=== PATIENT | male | born 1975 | race Caucasian/White ===

== ENCOUNTER 2017-08-19 17:19 | Emergency (ER) | payer OTHER ==
[2017-08-19] MEDS ORDERED: Aspirin 81 MG Tab.Chew PO ONE (18:01)
[2017-08-19] MEDS ORDERED: Sodium Chloride 0.9% 1,000 ML IV ONE (18:01)
[2017-08-19 18:43] LABS: CHLORIDE,CL 105 mmol/L (98-107); SODIUM,NA 141 mmol/L (136-148)
--- NOTE | 2017-08-19 19:41 | EDM.PDOC ---
ED HPI GENERAL MEDICAL PROBLEM - General Chief Complaint: Chest Pain Stated Complaint: ANXIETY Time Seen by Provider: 08/19/17 17:45 Source of Information: Reports: Patient History Limitations: Reports: No Limitations - History of Present Illness INITIAL COMMENTS - FREE TEXT/NARRATIVE: HISTORY AND PHYSICAL: History of present illness: [Patient comes to the emergency room complaining of chest pain. He admits to history of anxiety and panic attacks in his 20s. He's been evaluated for chest pain a couple of times within the past year which has always been found to be not cardiac in nature, and attributed to anxiety. He's noticed some chest discomfort over the left side of his chest with radiation into his left arm on and off for the past couple of days. His pain has been steadily worsening for the past 3 hours prior to ER arrival. He states that he took some extra pre- workout supplement before his workout today which intensified his feelings of chest pain. No fever or chills. He feels some shortness of breath with the chest pain. No fever or chills. Denies recent illness or infection. No earache sore throat or runny nose. Denies cough. Pain with taking a deep breath. No abdominal pain nausea or vomiting. No episodes of diaphoresis or chills. No swelling to his feet or lower legs. Mood has overall been stable. Review of systems: As per history of present illness and below otherwise all systems reviewed and negative. Past medical history: As per history of present illness and as reviewed below otherwise noncontributory. Surgical history: As per history of present illness and as reviewed below otherwise noncontributory. Social history: No reported history of drug or alcohol abuse. Family history: As per history of present illness and as reviewed below otherwise noncontributory. Physical exam: Gen.: Well-developed well-nourished male in no acute distress. Resting comfortably on exam table. Appears mildly anxious with conversation. HEENT: Atraumatic, normocephalic. TMs pearly [place]. Oral mucous membranes are pink and moist. Neck supple no lymphadenopathy. Lungs: Clear to auscultation, breath sounds equal bilaterally. Heart: S1S2, regular rate and rhythm. No murmur gallop click or rub. Abdomen: Soft, nondistended, nontender. Bowel sounds are normoactive throughout. No masses guarding or rebound. No CVA tenderness. Pelvis: Stable nontender. Genitourinary: Deferred. Rectal: Deferred. Extremities: Atraumatic, negative for cords or calf pain. No cyanosis or edema to feet or lower legs. Neurovascular unremarkable. Neuro: Awake, alert, oriented. Motor and sensory unremarkable throughout. Exam nonfocal. Diagnostics: [EKG, CBC, CMP, troponin] Therapeutics: [1 L normal saline, aspirin 324 mg by mouth] Impression: [Anxiety ] Plan: [Discussed w/ patient that his EKG and labs are WNL. We discussed that his chest pain is due to uncontrolled anxiety. Patient verbalizes his agreement and understanding, and also is relieved that it is non cardiac. He is encouraged to establish w/ a local PCP to discuss anxiety/panic and associated symptoms. He is in agreement with today's plan. All questions are answered and concerns are addressed. ] Definitive disposition and diagnosis as appropriate pending reevaluation and review of above. Chest Pain Score (Numeric/FACES): 4 - Related Data Allergies Allergy/AdvReac Type Severity Reaction Status Date / Time No Known Allergies Allergy Verified 08/19/17 17:56 Home Meds: Home Meds . [No Known Home Meds] 08/19/17 [History] Past Medical History - Past Health History Medical/Surgical History: Denies Medical/Surgical History Social & Family History - Tobacco Use Smoking Status *Q: Never Smoker Second Hand Smoke Exposure: No - Caffeine Use Caffeine Use: Reports: Other - Recreational Drug Use Recreational Drug Use: No ED ROS GENERAL - Review of Systems Review Of Systems: ROS reveals no pertinent complaints other than HPI. ED EXAM, GENERAL - Physical Exam Exam: See Below Course - Vital Signs Last Recorded V/S: Last Vital Signs Temp 97.8 F 08/19/17 17:56 Pulse 84 08/19/17 19:46 Resp 16 08/19/17 19:46 BP 153/98 H 08/19/17 19:46 Pulse Ox 97 08/19/17 19:46 - Orders/Labs/Meds Labs: Laboratory Tests 08/19/17 08/19/17 08/19/17 Range/Units 18:08 18:08 18:08 WBC 5.04 (4.0-11.0) K/uL RBC 5.15 (4.50-5.90) M/uL Hgb 15.7 (13.0-17.0) g/dL Hct 44.6 (38.0-50.0) % MCV 86.6 (80.0-98.0) fL MCH 30.5 (27.0-32.0) pg MCHC 35.2 (31.0-37.0) g/dL RDW Std Deviation 40.8 (28.0-62.0) fl RDW Coeff of Maciej 13 (11.0-15.0) % Plt Count 154 (150-400) K/uL MPV 9.70 (7.40-12.00) fL Neut % (Auto) 78.0 (48.0-80.0) % Lymph % (Auto) 14.1 L (16.0-40.0) % [place] % (Auto) 7.5 (0.0-15.0) % Eos % (Auto) 0.4 (0.0-7.0) % Baso % (Auto) 0.0 (0.0-1.5) % Neut # (Auto) 3.9 (1.4-5.7) K/uL Lymph # (Auto) 0.7 (0.6-2.4) K/uL [place] # (Auto) 0.4 (0.0-0.8) K/uL Eos # (Auto) 0.0 (0.0-0.7) K/uL Baso # (Auto) 0.0 (0.0-0.1) K/uL Nucleated RBC % 0.0 /100WBC Nucleated RBCs # 0 K/uL INR 1.01 Sodium 141 (136-148) mmol/L Potassium 4.0 (3.5-5.1) mmol/L Chloride 105 (98-107) mmol/L Carbon Dioxide 29.8 (21.0-32.0) mmol/L BUN 20 H (7.0-18.0) mg/dL Creatinine 1.1 (0.8-1.3) mg/dL Est Cr Clr Drug Dosing TNP Estimated GFR (MDRD) > 60.0 ml/min Glucose 101 (74-106) mg/dL Calcium 9.4 (8.5-10.1) mg/dL Total Bilirubin 0.5 (0.2-1.0) mg/dL AST 29 (15-37) IU/L ALT 35 (14-63) IU/L Alkaline Phosphatase 66 (46-116) U/L Troponin I < 0.050 (0.000-0.056) ng/mL Total Protein 7.1 (6.4-8.2) g/dL Albumin 4.0 (3.4-5.0) g/dL Globulin 3.1 (2.0-3.5) g/dL Albumin/Globulin Ratio 1.3 (1.3-2.8) Meds: Medications Discontinued Medications Generic Name Dose Route Start Last Admin Trade Name Samir PRN Reason Stop Dose Admin Aspirin 324 mg 08/19/17 18:01 08/19/17 18:15 Aspirin PO 08/19/17 18:02 324 mg ONETIME ONE Administration Sodium Chloride 1,000 mls @ 999 mls/hr 08/19/17 18:01 08/19/17 18:15 Normal Saline IV 08/19/17 19:01 999 mls/hr .Bolus ONE Administration Departure - Departure Time of Disposition: 20:00 Disposition: Home, Self-Care 01 Condition: Good Clinical Impression: Anxiety Instructions: Generalized Anxiety Disorder, Adult Referrals: PCP,None [Primary Care Provider] - Forms: ED Department Discharge Additional Instructions: The following information is given to patients seen in the emergency department who are being discharged to home. This information is to outline your options for follow-up care. We provide all patients seen in our emergency department with a follow-up referral. The need for follow-up, as well as the timing and circumstances, are variable depending upon the specifics of your emergency department visit. If you don't have a primary care physician on staff, we will provide you with a referral. We always advise you to contact your personal physician following an emergency department visit to inform them of the circumstance of the visit and for follow-up with them and/or the need for any referrals to a consulting specialist. The emergency department will also refer you to a specialist when appropriate. This referral assures that you have the opportunity for follow-up care with a specialist. All of these measure are taken in an effort to provide you with optimal care, which includes your follow-up. Under all circumstances we always encourage you to contact your private physician who remains a resource for coordinating your care. When calling for follow-up care, please make the office aware that this follow-up is from your recent emergency room visit. If for any reason you are refused follow-up, please contact the [facility] emergency department at and asked to speak to the emergency department charge nurse. [facility] [address] [place] [id number] Establish care with a local primary care provider at the clinic listed above. Follow-up there in the next 48-72 hours. Get plenty of fluids, and plenty of rest. Return to ER as needed as discussed.
== END 2017-08-19 20:04 | disposition home or self-care (01) ==
LOC: MW.ED 17:19
DX: F41.9 Anxiety disorder, unspecified (principal)
CPT/HCPCS: 36415; 80053; 84484; 85025; 85610; 93005; 96360; 99285; A9270; J7040; 99282

== ENCOUNTER 2018-07-22 00:37 | Emergency (ER) | payer OTHER ==
--- NOTE | 2018-07-22 00:44 | EDM.PDOC ---
ED HPI GENERAL MEDICAL PROBLEM - General Stated Complaint: HEART RACING Time Seen by Provider: 07/22/18 00:43 Source of Information: Reports: Patient - History of Present Illness INITIAL COMMENTS - FREE TEXT/NARRATIVE: HISTORY AND PHYSICAL: History of present illness: [Patient with anxiety presents to emergency room in no distress without chest pain no fever nausea vomiting chills sweats no chest pain shortness breath headache dizziness palpitation no bowel or urine symptoms Noted his heart rate to be 104 tonight for short period presents for evaluation/ medical screening exam ] Review of systems: As per history of present illness and below otherwise all systems reviewed and negative. Past medical history: As per history of present illness and as reviewed below otherwise noncontributory. Surgical history: As per history of present illness and as reviewed below otherwise noncontributory. Social history: No reported history of drug or alcohol abuse. Family history: As per history of present illness and as reviewed below otherwise noncontributory. Physical exam: HEENT: Atraumatic, normocephalic, pupils reactive, negative for conjunctival pallor or scleral icterus, mucous membranes moist, throat clear, neck supple, nontender, trachea midline. Lungs: Clear to auscultation, breath sounds equal bilaterally, chest nontender. Heart: S1S2, regular, negative for clicks, rubs, or JVD. Abdomen: Soft, nondistended, nontender. Negative for masses or hepatosplenomegaly. Negative for costovertebral tenderness. Pelvis: Stable nontender. Genitourinary: Deferred. Rectal: Deferred. Extremities: Atraumatic, negative for cords or calf pain. Neurovascular unremarkable. Neuro: Awake, alert, oriented. Cranial nerves II through XII unremarkable. Cerebellum unremarkable. Motor and sensory unremarkable throughout. Exam nonfocal. Diagnostics: [CBC CMP UA troponin EKG ] Therapeutics: [Follow-up with primary None] Impression: [Anxiety about health ]Medical screening exam Definitive disposition and diagnosis as appropriate pending reevaluation and review of above. Chest Pain Score (Numeric/FACES): 2 - Related Data Allergies Allergy/AdvReac Type Severity Reaction Status Date / Time No Known Allergies Allergy Verified 07/22/18 00:53 Home Meds: Home Meds DULoxetine HCl [Cymbalta] 30 mg PO DAILY 07/22/18 [History] Metoprolol Succinate/HCTZ [Metoprolol ER-Hctz 100-12.5 mg] 1 each PO DAILY 07/22 [History] Past Medical History - Past Health History Medical/Surgical History: Denies Medical/Surgical History Social & Family History - Caffeine Use Caffeine Use: Reports: Other ED ROS GENERAL - Review of Systems Review Of Systems: See Below ED EXAM, GENERAL - Physical Exam Exam: See Below Course - Vital Signs Last Recorded V/S: Last Vital Signs Temp 97.7 F 07/22/18 00:45 Pulse 90 07/22/18 00:45 Resp 18 07/22/18 00:45 BP 195/107 H 07/22/18 00:45 Pulse Ox 96 07/22/18 00:45 - Orders/Labs/Meds Orders: Active Orders 24 hr Category Date Time Status EKG Documentation Completion [RC] STAT Care 07/22/18 00:45 Active Chest 1V Frontal [CR] Stat Exams 07/22/18 00:45 Taken COMPREHENSIVE METABOLIC PN,CMP [CHEM] Stat Lab 07/22/18 00:50 Received TROPONIN I [CHEM] Stat Lab 07/22/18 00:50 Received UA RFX DANIEL AND CULT IF INDIC [URIN] Stat Lab 07/22/18 00:44 Ordered Labs: Laboratory Tests 07/22/18 Range/Units 00:50 WBC 6.73 (4.0-11.0) K/uL RBC 5.09 (4.50-5.90) M/uL Hgb 15.1 (13.0-17.0) g/dL Hct 43.9 (38.0-50.0) % MCV 86.2 (80.0-98.0) fL MCH 29.7 (27.0-32.0) pg MCHC 34.4 (31.0-37.0) g/dL RDW Std Deviation 40.6 (28.0-62.0) fl RDW Coeff of Maciej 13 (11.0-15.0) % Plt Count 178 (150-400) K/uL MPV 9.80 (7.40-12.00) fL Neut % (Auto) 53.7 (48.0-80.0) % Lymph % (Auto) 34.2 (16.0-40.0) % [place] % (Auto) 9.2 (0.0-15.0) % Eos % (Auto) 2.5 (0.0-7.0) % Baso % (Auto) 0.4 (0.0-1.5) % Neut # (Auto) 3.6 (1.4-5.7) K/uL Lymph # (Auto) 2.3 (0.6-2.4) K/uL [place] # (Auto) 0.6 (0.0-0.8) K/uL Eos # (Auto) 0.2 (0.0-0.7) K/uL Baso # (Auto) 0.0 (0.0-0.1) K/uL Departure - Departure Time of Disposition: 01:10 Disposition: Home, Self-Care 01 Condition: Good Clinical Impression: Anxiety about health, Encounter for medical screening examination - Discharge Information Additional Instructions: The following information is given to patients seen in the emergency department who are being discharged to home. This information is to outline your options for follow-up care. We provide all patients seen in our emergency department with a follow-up referral. The need for follow-up, as well as the timing and circumstances, are variable depending upon the specifics of your emergency department visit. If you don't have a primary care physician on staff, we will provide you with a referral. We always advise you to contact your personal physician following an emergency department visit to inform them of the circumstance of the visit and for follow-up with them and/or the need for any referrals to a consulting specialist. The emergency department will also refer you to a specialist when appropriate. This referral assures that you have the opportunity for follow-up care with a specialist. All of these measure are taken in an effort to provide you with optimal care, which includes your follow-up. Under all circumstances we always encourage you to contact your private physician who remains a resource for coordinating your care. When calling for follow-up care, please make the office aware that this follow-up is from your recent emergency room visit. If for any reason you are refused follow-up, please contact the [facility] emergency department at and asked to speak to the emergency department charge nurse. - My Orders Last 24 Hours: My Active Orders 07/22/18 00:44 UA RFX DANIEL AND CULT IF INDIC [URIN] Stat 07/22/18 00:45 EKG Documentation Completion [RC] STAT Chest 1V Frontal [CR] Stat 07/22/18 00:50 COMPREHENSIVE METABOLIC PN,CMP [CHEM] Stat TROPONIN I [CHEM] Stat - Assessment/Plan Last 24 Hours: My Active Orders 07/22/18 00:44 UA RFX DANIEL AND CULT IF INDIC [URIN] Stat 07/22/18 00:45 EKG Documentation Completion [RC] STAT Chest 1V Frontal [CR] Stat 07/22/18 00:50 COMPREHENSIVE METABOLIC PN,CMP [CHEM] Stat TROPONIN I [CHEM] Stat
--- NOTE | 2018-07-22 01:09 | CR ---
INDICATION: Chest pain TECHNIQUE: Chest 1 view COMPARISON: None FINDINGS: Cardiovascular and mediastinum: Upper normal heart size. Lungs and pleural spaces: Lungs are clear. No sign of infiltrate or mass. No sign of pleural effusion. No pneumothorax. Bones and soft tissues: No significant findings. IMPRESSION: No acute or significant findings. Dictated by Kenney Ambrocio MD @ Jul 22 2018 1:08AM Signed by Dr. Kenney Ambrocio @ Jul 22 2018 1:08AM
[2018-07-22 01:33] LABS: CHLORIDE,CL 106 mmol/L (98-107); SODIUM,NA 144 mmol/L (136-148)
== END 2018-07-22 02:24 | disposition home or self-care (01) ==
LOC: MW.ED 00:37
DX: F41.9 Anxiety disorder, unspecified (principal); Z13.9 Encounter for screening, unspecified; Z79.899 Other long term (current) drug therapy
CPT/HCPCS: 36415; 71045; 71045-26; 80053; 81001; 84484; 85025; 93005; 99282; 99285-25